=== PATIENT | male | born 1980 ===

== ENCOUNTER 2023-08-30 17:40 | Day surgery (SDC) | payer OTHER ==
[2023-08-30] MEDS: Iopamidol 755 MG/ML 500 ML Multipack Bottle IVPUSH STA (17:45)
[2023-08-30 17:58] LABS: HEMOGLOBIN 16.6 g/dL (14.0-18.0); MEAN CORPUSCULAR HEMOGLOBIN 28.7 pg (28.0-32.0); MEAN CORPUSCULAR HGB CONC 35.3 g/dL (32.0-36.0); MEAN CORPUSCULAR VOLUME 81.2 fL (83.0-99.0); MEAN PLATELET VOLUME 10.6 fL (9.4-12.4); PLATELET COUNT,PLT 144 K/uL (150-400); RED BLOOD CELL COUNT 5.79 M/uL (4.52-5.90); WHITE BLOOD CELL COUNT,WBC 13.14 K/uL (3.9-11.3)
[2023-08-30] MEDS: HYDROmorphone 1 MG/ML Syringe IVPUSH ONE (18:18)
[2023-08-30] MEDS: Ondansetron 4 MG/2 ML SDV IVPUSH ONE (18:19)
[2023-08-30 18:25] LABS: SEG NEUTROPHILS ABSOLUTE MAN 9.99 K/uL (1.80-7.70); SEG NEUTROPHILS PERCENT MAN 76 % (41-71)
[2023-08-30 18:26] LABS: ALBUMIN 4.4 g/dL (3.4-5.0); BILIRUBIN TOTAL 0.7 mg/dL (0.2-1.0); CARBON DIOXIDE,CO2 26.5 mmol/L (21.0-32.0); CREATININE 1.2 mg/dL (0.8-1.3); EST CRCL DRUG DOSING (CG) 69.76 mL/min; LYMPHOCYTES ABSOLUTE MAN 2.37 K/uL (1.00-4.80); LYMPHOCYTES PERCENT MAN 18 % (24-44); MAGNESIUM 1.7 mg/dL (1.8-2.4); MONOCYTES ABSOLUTE MAN 0.79 K/uL (0.00-0.80); MONOCYTES PERCENT MAN 6 % (0-8); POTASSIUM,K 3.7 mmol/L (3.5-5.1); PROTEIN TOTAL,TP 8.9 g/dL (6.4-8.2)
[2023-08-30] MEDS: Piperacillin/Tazobactam 4.5 GM in Sodium Chloride 0.9% 100 ML IV ONE (18:55)
[2023-08-30] MEDS ORDERED: fentaNYL 100 MCG/2 ML SDV ONE ×2 (19:09→20:37)
[2023-08-30] MEDS ORDERED: Rocuronium Bromide 50 MG/5 ML Syringe ONE (19:09)
[2023-08-30] MEDS ORDERED: dexmedeTOMIDine HCl 200 MCG/2 ML SDV ONE (19:09)
[2023-08-30] MEDS ORDERED: Water For Injection, Sterile 20 ML ONE (19:09)
[2023-08-30] MEDS ORDERED: Propofol 200 MG/20 ML SDV ONE (19:09)
[2023-08-30] MEDS ORDERED: Bupivacaine 0.5% 30 ML SDV ONE (19:11)
[2023-08-30] MEDS ORDERED: Bupivacaine 0.25% 30 ML SDV ONE (19:23)
[2023-08-30] MEDS ORDERED: Bupivacaine 0.5%/EPINEPHrine 1:200,000 30 ML SDV ONE (19:23)
[2023-08-30] MEDS ORDERED: Lactated Ringers 1,000 ML IV SCH ×2 (19:45→21:15)
[2023-08-30] MEDS ORDERED: Succinylcholine/Sod PF 100 MG/5 ML SYRINGE IV ONE (19:49)
[2023-08-30] MEDS ORDERED: Magnesium Sulfate (4.06 MEQ/ML) 5 GM/10 ML SDV ONE (20:05)
[2023-08-30] MEDS ORDERED: Ketamine HCL/NACL, ISO-OSM 50 MG/5 ML Syringe ONE (20:05)
[2023-08-30] MEDS ORDERED: Dexamethasone 4 MG/ML 5 ML MDV ONE (20:15)
[2023-08-30] MEDS ORDERED: Sugammadex Sodium 200 MG/2 ML VIAL IV ONE (20:27)
[2023-08-30] MEDS ORDERED: Ketorolac 30 MG/ML SDV ONE (20:27)
[2023-08-30] MEDS ORDERED: Acetaminophen/HYDROcodone 325-5 MG Tab PO PRN (21:05)
[2023-08-30] MEDS ORDERED: Morphine 2 MG/ML SYRINGE IVPUSH PRN (21:07)
[2023-08-30] MEDS ORDERED: Piperacillin/Tazobactam 3.375 GM in Sodium Chloride 0.9% 100 ML IV SCH (21:15)
[2023-08-30] MEDS ORDERED: Ondansetron 4 MG Tab.DIS PO PRN (21:37)
[2023-08-30] MEDS: Lactated Ringers 1,000 ML IV SCH (22:40)
[2023-08-30] MEDS: Piperacillin/Tazobactam 4.5 GM in Sodium Chloride 0.9% 100 ML IV SCH (22:45)
== END 2023-08-31 11:15 | disposition home or self-care (01) ==
LOC: MW.ED 17:40 → MW.SDS 21:01 → MW.MS 21:03 → MW.SDS 08-31 11:15
PROVIDERS: ATTEND Surgery
DX: K35.33 Acute appendicitis with perforation, localized peritonitis, and gangrene, with abscess (principal); F17.210 Nicotine dependence, cigarettes, uncomplicated
CPT/HCPCS: 36415; 44970; 64488; 74177; 80053; 83690; 83735; 85025; 96365; 96375; 99285; J0131; J0330; J0665; J1100; J1170; J1885; J2405; J2543; J2704; J3010; J3475; J3490; J7120; Q9967; 00840

== ENCOUNTER 2024-05-05 09:18 | Emergency (ER) | payer OTHER, BC ==
[2024-05-05 09:56] LABS: BASOPHILS ABSOLUTE AUTO 0.04 K/uL (0.00-0.20); BASOPHILS PERCENT AUTO 0.6 % (0.0-1.0); EOSINOPHILS ABSOLUTE AUTO 0.15 K/uL (0.00-0.45); EOSINOPHILS PERCENT AUTO 2.2 % (0.0-6.0); HEMATOCRIT 45.8 % (42.0-52.0); HEMOGLOBIN 15.6 g/dL (14.0-18.0); IMMATURE GRAN ABSOLUTE AUTO 0.02 K/uL (0.00-0.05); IMMATURE GRAN PERCENT AUTO 0.3 % (0.0-0.4); LYMPHOCYTES ABSOLUTE AUTO 4.02 K/uL (1.00-4.80); LYMPHOCYTES PERCENT AUTO 59.4 % (24.0-44.0); MEAN CORPUSCULAR HEMOGLOBIN 27.9 pg (28.0-32.0); MEAN CORPUSCULAR HGB CONC 34.1 g/dL (32.0-36.0); MEAN CORPUSCULAR VOLUME 81.8 fL (83.0-99.0); MEAN PLATELET VOLUME 10.7 fL (9.4-12.4); MONOCYTES ABSOLUTE AUTO 0.68 K/uL (0.00-0.80); NEUTROPHILS ABSOLUTE AUTO 1.86 K/uL (1.80-7.70); NEUTROPHILS PERCENT AUTO 27.5 % (41.0-71.0); PLATELET COUNT,PLT 155 K/uL (150-400); WHITE BLOOD CELL COUNT,WBC 6.77 K/uL (3.9-11.3)
[2024-05-05] MEDS: Sodium Chloride 0.9% 10 ML Syringe FLUSH PRN (10:10)
[2024-05-05] MEDS: amLODIPine 5 MG Tab PO ONE (10:10)
[2024-05-05] MEDS: Sodium Chloride 0.9% 2.5 ML Syringe FLUSH PRN (10:11)
[2024-05-05 10:24] LABS: ALBUMIN 4.2 g/dL (3.4-5.0); BILIRUBIN TOTAL 0.6 mg/dL (0.2-1.0); CALCIUM 9.7 mg/dL (8.5-10.1); CARBON DIOXIDE,CO2 28.4 mmol/L (21.0-32.0); CREATININE 1.1 mg/dL (0.8-1.3); EST CRCL DRUG DOSING (CG) 75.32 mL/min; POTASSIUM,K 3.7 mmol/L (3.5-5.1); PROTEIN TOTAL,TP 8.2 g/dL (6.4-8.2)
== END 2024-05-05 10:50 | disposition home or self-care (01) ==
LOC: MW.ED 09:18
DX: I10 Essential (primary) hypertension (principal); Z79.899 Other long term (current) drug therapy; Z75.8 Other problems related to medical facilities and other health care
CPT/HCPCS: 36415; 80053; 85025; 99283; A9270; J3490